=== PATIENT | female | born 1955 | race Caucasian/White ===

== ENCOUNTER → 2017-10-18 13:46 | Outpatient (CLI) | payer OTHER, SELFPAY ==
--- NOTE | 2017-10-18 13:47 | ECHOD_ITS ---
Reason For Study: HTN Procedure This was a 2D Doppler, Color Flow transthoracic echocardiogram. The study was technically difficult. Due to diminished accoustic parasternal windows. Exam performed in department. Left Ventricle Normal LV size. Left ventricular systolic function is normal. The estimated ejection fraction is 60 %. Transmitral diastolic flow velocities suggest mild (stage 1) diastolic dysfunction (reversed pattern). No regional wall motion abnormalities noted. Right Ventricle Normal RV size. Normal systolic function. Atria Normal left atrium. Normal right atrium. Mitral Valve Normal mitral valve. Tricuspid Valve Normal tricuspid valve. Aortic Valve Normal aortic valve. Trisinus/trileaflet aortic valve. Pulmonic Valve Normal pulmonic valve. Great Vessels Normal aortic root. The pulmonary artery is normal size. Normal inferior vena cava. Pericardium/Pleural No pericardial effusion. MMode/2D Measurements & Calculations LVIDd: 3.4 cm IVSd: 0.96 cm LAV(MOD-bp): 28.8 ml LVIDs: 1.9 cm LVPWd: 0.98 cm LAV(MOD-bp) Indexed: 17.3 ml/m2 RVDd: 2.7 cm FS: 44.8 % LAV(MOD-sp2): 32.4 ml LAV(MOD-sp4): 23.3 ml LA A4 area: 10.9 cm2 RA A4 area: 10.0 cm2 Doppler Measurements & Calculations MV E max cal: 64.3 cm/sec Lat Peak E' Cal: 11.6 cm/sec Med Peak E' Cal: 8.5 cm/sec MV A max cal: 92.8 cm/sec E/E' lat: 5.5 E/E' med: 7.5 MV E/A: 0.69 Ao V2 max: 127.1 cm/sec LV V1 max: 112.4 cm/sec PA V2 max: 117.5 cm/sec Ao max P.5 mmHg LV V1 max P.1 mmHg TR max cal: 213.8 cm/sec TR max P.3 mmHg Interpretation Summary Normal LV size. Left ventricular systolic function is normal. The estimated ejection fraction is 60 %. Transmitral diastolic flow velocities suggest mild (stage 1) diastolic dysfunction (reversed pattern). Ordering Physician: Martin Walton Referring Physician: Kailey Calix Performed By: Maye Boucher, SULEMA, RVT
[2017-10-18 14:52] LABS: Anion Gap 5 (5-15); BUN 15 mg/dL (7-18); BUN/Creat Ratio 14.3 RATIO (10-20); Calcium,Total 9.3 mg/dL (8.5-10.1); Chloride 104 mmol/L (98-107); Creatinine, Serum 1.05 mg/dL (0.55-1.02); EST Glomerular Filtration Rate 56 mL/min (>60); Est Glom Filt Rate - Afr Amer 68 mL/min (>60); Glucose 107 mg/dL (74-106); Sodium Level 138 mmol/L (136-145); Thyroid Stim Hormone (TSH) 4.28 uIU/mL (0.358-3.74)
== END ==
PROVIDERS: Family Provider Internal Medicine; PCP Internal Medicine; Visit Provider Internal Medicine Cardiovascular Disease
DX: I10 Essential (primary) hypertension (principal)
CPT/HCPCS: 36415; 80048; 84443; 93306

== ENCOUNTER → 2019-04-18 07:52 | Outpatient (CLI) | payer MEDICARE, SELFPAY ==
[2019-04-16 10:44] VITALS: BMI 21.7
[2019-04-18 09:26] LABS: AST(SGOT) 33 U/L (15-37); Alanine Aminotransfer ALT/SGPT 33 U/L (13-56); Albumin, Serum 3.8 g/dL (3.2-5.0); Alkaline Phosphatase 95 U/L (45-117); Bilirubin, Direct 0.21 mg/dL (0.00-0.30); Cholesterol 203 mg/dL (200); Globulin 3.4 g/dL (2.2-4.2); High Density Lipoprotein 86 mg/dL; Protein, Total 7.2 g/dL (6.4-8.2); Triglycerides 59 mg/dL; Very Low Density Lipoprotein 12 mg/dL (5-40)
== END ==
PROVIDERS: Family Provider Internal Medicine; PCP Internal Medicine; Referring Provider Internal Medicine Cardiovascular Disease; Visit Provider Internal Medicine Cardiovascular Disease
DX: E78.00 Pure hypercholesterolemia, unspecified (principal); I10 Essential (primary) hypertension; I47.1 Supraventricular tachycardia
CPT/HCPCS: 36415; 80061; 80076